=== PATIENT | male | born 1975 | race Caucasian/White ===

== ENCOUNTER 2018-05-08 04:11 | Emergency (ER) | payer OTHER ==
[~2018-05-08] VITALS: Ht 180.3 cm; Wt 64.0 kg
[~2018-05-08 04:11] MED LIST: ESCI10TA54 PO
[2018-05-08 04:18] VITALS: BP 141/87
[2018-05-08] MEDS ORDERED: ondansetron/PF 4mg/2ml inj IM ONE (04:30)
[2018-05-08] MEDS ORDERED: ONDA8TAB9 PO (04:33)
== END 2018-05-08 04:45 | disposition home or self-care (01) ==
LOC: ER 04:11
DX: K52.9 Noninfective gastroenteritis and colitis, unspecified (principal); F32.9 Major depressive disorder, single episode, unspecified
CPT/HCPCS: 96372; 99283; J2405

== ENCOUNTER 2018-05-13 02:46 | Emergency (ER) | payer OTHER ==
[~2018-05-13] VITALS: Ht 180.3 cm; Wt 68.5 kg
[~2018-05-13 02:46] MED LIST changes: +ONDA8TAB9 PO
[2018-05-13 03:06] VITALS: BP 130/86
== END 2018-05-13 05:18 | disposition left against medical advice (07) ==
LOC: ER 02:46
DX: R11.0 Nausea (principal); R19.7 Diarrhea, unspecified; Z53.21 Procedure and treatment not carried out due to patient leaving prior to being seen by health care provider

== ENCOUNTER 2018-05-17 16:33 | Emergency (ER) | payer OTHER | END 2018-05-17 16:50 | disposition left against medical advice (07) | LOC: ER 16:35 | DX: Z53.21 Procedure and treatment not carried out due to patient leaving prior to being seen by health care provider (principal) ==